=== PATIENT | male | born 1975 | race Two or more races ===

== ENCOUNTER 2023-03-27 18:23 | Inpatient (IN) | payer MEDICAID, OTHER ==
[~2023-03-27] VITALS: Ht 190.5 cm; Wt 113.0 kg
[2023-03-27 19:13] LABS: Eosinophils # (auto) 0.2 10 ^3/uL (0-0.8); Eosinophils % (auto) 3.3 % (0.0-7.0); Mean Corpuscular Hemoglobin 26.9 pg (28.0-32.0); Monocytes # (auto) 0.6 10 ^3/uL (0-1.3); Monocytes % (auto) 9.8 % (0.0-12.0); Neutrophils # (auto) 3.2 10 ^3/uL (1.6-8.6); Nucleated Red Blood Cells % 0.2 %
[2023-03-27 19:16] LABS: Basophils # (auto) 0 10 ^3/uL (0-0.2); Basophils % (auto) 0.8 % (0.0-2.0); Hematocrit 45.1 % (41.0-53.0); Hemoglobin 14.7 g/dL (13.5-17.5); Lymphocytes # (auto) 2.1 10 ^3/uL (0.4-5.4); Lymphocytes % (auto) 34.4 % (10.0-50.0); Mean Corpuscular Hgb Conc. 32.7 g/dL (32.0-36.0); Mean Corpuscular Volume 82.4 fL (80.0-100.0); Neutrophils % (auto) 51.7 % (37.0-80.0); Red Blood Cells 5.48 10^6/uL (4.5-5.90); Red Cell Distribution Width 19.5 % (11.8-14.3); White Blood Cell 6.2 10^3/uL (4.4-10.8)
[2023-03-27 19:33] LABS: INR 1.08 (0.9-1.15); Partial Thromboplastin Time 28.5 sec (24.6-33.4)
[2023-03-27 19:34] LABS: Albumin 3.5 g/dL (3.4-5.0); Calcium 8.3 mg/dL (8.5-10.1); Magnesium 2.3 mg/dL (1.6-2.6); Potassium 3.9 mmol/L (3.5-5.1)
[2023-03-27 19:37] LABS: BUN/Creatinine Ratio 19.6 (10.0-20.0); Bilirubin, Total 0.3 mg/dL (0.2-1.0); Total Protein 6.4 g/dL (6.4-8.2)
[2023-03-28] MEDS ORDERED: NITROGLYCERIN 0.4 MG SL TAB SL PRN (01:30)
[2023-03-28] MEDS ORDERED: ACETAMINOPHEN 325 MG TAB PO PRN (01:30)
[2023-03-28] MEDS ORDERED: ONDANSETRON HCL 4 MG/2 ML VIAL IV PRN (01:30)
[2023-03-28] MEDS ORDERED: DEXTROSE (50%) 50ML SYRG IV PRN (06:30)
[2023-03-28] MEDS: ACCU-CHEK COMFORT CURVE STRIP VI SCH ×4 (06:59→22:30)
[2023-03-28] MEDS: InsuLIN REG 1unit/0.01ml Soln (100units/ml) SC SCH ×4 (07:00→22:30)
[2023-03-28] MEDS: PANTOPRAZOLE 40 MG TAB PO SCH (08:49)
[2023-03-28] MEDS: METOPROLOL SUCCINATE XL 50 MG TAB PO SCH (08:49)
[2023-03-28] MEDS: FUROSEMIDE 40 MG TAB PO SCH (08:49)
[2023-03-28] MEDS: LISINOPRIL 20 MG TAB PO SCH (08:50)
[2023-03-28 13:16] LABS: Alcohol, Urine < 3.0 mg/dL (0-10); Amphetamine Screen, Urine NEGATIVE (NEGATIVE); Barbiturate Scree,Urine NEGATIVE (NEGATIVE); Benzodiazephine Screen, Urine NEGATIVE (NEGATIVE); Cannabinoid Screen, Urine NEGATIVE (NEGATIVE); Cocaine Screen, Urine NEGATIVE (NEGATIVE); Opiate Scree,Urine NEGATIVE (NEGATIVE); Phencyclidine Screen, Urine NEGATIVE (NEGATIVE)
[2023-03-28 13:38] LABS: Urine Bacteria NONE SEEN /hpf (None Seen); Urine Blood Negative /uL (Negative); Urine Specific Gravity 1.006 (1.001-1.035); Urine WBC <1 /hpf (0 - 3)
[2023-03-28] MEDS: MORPHINE SULFATE INJ 2 MG/ml SYRG IV PRN ×2 (21:02→22:45)
[2023-03-28] MEDS: ATORVASTATIN 20 MG TAB PO SCH (22:27)
[2023-03-28 22:59] VITALS: BP 121/79
[2023-03-29 05:00] VITALS: BP 125/72
[2023-03-29] MEDS ORDERED: SULF500T57 PO (05:38)
[2023-03-29] MEDS ORDERED: ASPI-543 PO (05:38)
[2023-03-29] MEDS ORDERED: ATOR40TA52 PO (05:38)
[2023-03-29] MEDS ORDERED: METO25TA5 PO (05:38)
[2023-03-29] MEDS ORDERED: METF-370 PO (05:38)
[2023-03-29] MEDS ORDERED: LISI20TA56 PO (05:40)
[2023-03-29] MEDS ORDERED: FURO40TA4 PO (05:40)
[2023-03-29] MEDS: ACCU-CHEK COMFORT CURVE STRIP VI SCH ×4 (06:14→22:34)
[2023-03-29] MEDS: InsuLIN REG 1unit/0.01ml Soln (100units/ml) SC SCH ×4 (06:17→22:45)
[2023-03-29 07:18] LABS: BUN/Creatinine Ratio 23.3 (10.0-20.0); Basophils # (auto) 0.1 10 ^3/uL (0-0.2); Basophils % (auto) 0.7 % (0.0-2.0); Calcium 8.4 mg/dL (8.5-10.1); Eosinophils # (auto) 0.3 10 ^3/uL (0-0.8); Eosinophils % (auto) 4.2 % (0.0-7.0); Hematocrit 46.8 % (41.0-53.0); Hemoglobin 15.5 g/dL (13.5-17.5); Lymphocytes # (auto) 2.8 10 ^3/uL (0.4-5.4); Lymphocytes % (auto) 38.5 % (10.0-50.0); Mean Corpuscular Hemoglobin 27.2 pg (28.0-32.0); Mean Corpuscular Volume 82.2 fL (80.0-100.0); Monocytes # (auto) 0.7 10 ^3/uL (0-1.3); Monocytes % (auto) 9.9 % (0.0-12.0); Neutrophils # (auto) 3.3 10 ^3/uL (1.6-8.6); Neutrophils % (auto) 46.7 % (37.0-80.0); Nucleated Red Blood Cells % 0.2 %; Potassium 3.9 mmol/L (3.5-5.1); Red Blood Cells 5.69 10^6/uL (4.5-5.90); White Blood Cell 7.2 10^3/uL (4.4-10.8)
[2023-03-29] MEDS: PANTOPRAZOLE 40 MG TAB PO SCH (09:54)
[2023-03-29] MEDS: LISINOPRIL 20 MG TAB PO SCH (09:54)
[2023-03-29] MEDS: METOPROLOL SUCCINATE XL 50 MG TAB PO SCH (09:55)
[2023-03-29] MEDS: FUROSEMIDE 40 MG TAB PO SCH (09:55)
[2023-03-29 16:45] VITALS: BP 125/74
[2023-03-29 22:00] VITALS: BP 133/79
[2023-03-29] MEDS: ATORVASTATIN 20 MG TAB PO SCH (22:34)
[2023-03-29] MEDS: MUPIROCIN 2% OINT 15gm or 22gm FOR MRSA NARES EACHNOSTRI SCH (22:34)
[2023-03-30 05:00] VITALS: BP 118/84
[2023-03-30 05:44] LABS: Basophils # (auto) 0.1 10 ^3/uL (0-0.2); Basophils % (auto) 0.9 % (0.0-2.0); Eosinophils # (auto) 0.3 10 ^3/uL (0-0.8); Eosinophils % (auto) 3.5 % (0.0-7.0); Hematocrit 49.1 % (41.0-53.0); Hemoglobin 16.2 g/dL (13.5-17.5); Lymphocytes # (auto) 2.8 10 ^3/uL (0.4-5.4); Lymphocytes % (auto) 33.7 % (10.0-50.0); Mean Corpuscular Hemoglobin 27.2 pg (28.0-32.0); Mean Corpuscular Volume 82.6 fL (80.0-100.0); Monocytes # (auto) 0.8 10 ^3/uL (0-1.3); Monocytes % (auto) 9.9 % (0.0-12.0); Neutrophils # (auto) 4.3 10 ^3/uL (1.6-8.6); Nucleated Red Blood Cells % 0.2 %; Red Blood Cells 5.94 10^6/uL (4.5-5.90); White Blood Cell 8.2 10^3/uL (4.4-10.8)
[2023-03-30 05:52] LABS: BUN/Creatinine Ratio 21.3 (10.0-20.0); Calcium 8.7 mg/dL (8.5-10.1); Potassium 3.9 mmol/L (3.5-5.1)
[2023-03-30] MEDS: ACCU-CHEK COMFORT CURVE STRIP VI SCH ×4 (06:34→21:55)
[2023-03-30] MEDS: InsuLIN REG 1unit/0.01ml Soln (100units/ml) SC SCH ×4 (06:46→21:57)
[2023-03-30 08:54] VITALS: BP 149/104
[2023-03-30] MEDS: LISINOPRIL 20 MG TAB PO SCH (10:31)
[2023-03-30] MEDS: METOPROLOL SUCCINATE XL 50 MG TAB PO SCH (10:32)
[2023-03-30] MEDS: PANTOPRAZOLE 40 MG TAB PO SCH (10:33)
[2023-03-30] MEDS: FUROSEMIDE 40 MG TAB PO SCH (10:33)
[2023-03-30] MEDS: MUPIROCIN 2% OINT 15gm or 22gm FOR MRSA NARES EACHNOSTRI SCH ×2 (10:34→21:44)
[2023-03-30 12:15] VITALS: BP 115/75
[2023-03-30 17:23] VITALS: BP 129/80
[2023-03-30 20:00] VITALS: BP 110/66
[2023-03-30] MEDS: ATORVASTATIN 20 MG TAB PO SCH (21:46)
[2023-03-30 22:00] VITALS: BP 110/66
[2023-03-31 05:00] VITALS: BP 143/85
[2023-03-31] MEDS: InsuLIN REG 1unit/0.01ml Soln (100units/ml) SC SCH (06:09)
[2023-03-31] MEDS: ACCU-CHEK COMFORT CURVE STRIP VI SCH (06:09)
[2023-03-31 09:00] VITALS: BP 138/87
[2023-03-31] MEDS: FUROSEMIDE 40 MG TAB PO SCH (09:09)
[2023-03-31] MEDS: PANTOPRAZOLE 40 MG TAB PO SCH (09:09)
[2023-03-31] MEDS: METOPROLOL SUCCINATE XL 50 MG TAB PO SCH (09:10)
[2023-03-31] MEDS: LISINOPRIL 20 MG TAB PO SCH (09:10)
[2023-03-31] MEDS: MUPIROCIN 2% OINT 15gm or 22gm FOR MRSA NARES EACHNOSTRI SCH (09:36)
[2023-03-31 11:03] VITALS: BP 138/87
== END 2023-03-31 13:45 | disposition short-term general hospital (02) | DRG 194 ==
LOC: EDBD → ER 18:29 → TELE 03-28 01:25 → TELE-EAST 03-28 21:43
PROVIDERS: ADMIT Nurse Practitioner; ATTEND Internal Medicine Pulmonary Disease
DX: I11.0 Hypertensive heart disease with heart failure (principal); I42.0 Dilated cardiomyopathy; I50.23 Acute on chronic systolic (congestive) heart failure; F15.10 Other stimulant abuse, uncomplicated; E11.9 Type 2 diabetes mellitus without complications; F19.90 Other psychoactive substance use, unspecified, uncomplicated; Z95.810 Presence of automatic (implantable) cardiac defibrillator
CPT/HCPCS: 36415; 71045; 80048; 80053; 80307; 81001; 82962; 83605; 83735; 83880; 84484; 85025; 85379; 85610; 85730; 87040; 87081; 93005; 93306; G0378; J1815

== ENCOUNTER 2023-04-10 11:09 | Emergency (ER) | payer MEDICAID ==
[~2023-04-10] VITALS: Ht 190.5 cm; Wt 109.0 kg
[~2023-04-10 11:09] MED LIST: ASPI-543 PO; ATOR40TA52 PO; FURO40TA4 PO; LISI20TA56 PO; METF-370 PO; METO25TA5 PO
[2023-04-10] MEDS ORDERED: MORPHINE SULFATE 4 MG/ML SYR/VIAL IV ONE (11:30)
[2023-04-10] MEDS ORDERED: ONDANSETRON HCL 4 MG/2 ML VIAL IV ONE (11:30)
[2023-04-10 12:03] LABS: Basophils # (auto) 0.1 10 ^3/uL (0-0.2); Eosinophils # (auto) 0.2 10 ^3/uL (0-0.8); Eosinophils % (auto) 2.6 % (0.0-7.0); Hemoglobin 16.7 g/dL (13.5-17.5); Lymphocytes # (auto) 2.2 10 ^3/uL (0.4-5.4); Mean Corpuscular Hemoglobin 27.2 pg (28.0-32.0); Red Blood Cells 6.14 10^6/uL (4.5-5.90)
[2023-04-10 12:06] LABS: Hematocrit 50.4 % (41.0-53.0); Lymphocytes % (auto) 26.6 % (10.0-50.0); Mean Corpuscular Hgb Conc. 33.1 g/dL (32.0-36.0); Mean Corpuscular Volume 82.1 fL (80.0-100.0); Monocytes # (auto) 0.7 10 ^3/uL (0-1.3); Monocytes % (auto) 8.9 % (0.0-12.0); Neutrophils % (auto) 60.9 % (37.0-80.0); Nucleated Red Blood Cells % 0.3 %; White Blood Cell 8.3 10^3/uL (4.4-10.8)
[2023-04-10 12:10] LABS: Albumin 3.4 g/dL (3.4-5.0); Calcium 9.3 mg/dL (8.5-10.1); Magnesium 2.1 mg/dL (1.6-2.6); Potassium 4.9 mmol/L (3.5-5.1)
[2023-04-10 12:15] LABS: Bilirubin, Total 0.6 mg/dL (0.2-1.0)
[2023-04-10 13:05] LABS: INR 1.03 (0.9-1.15); Partial Thromboplastin Time 26.3 SEC (24.5-34.5)
[2023-04-10 15:18] LABS: Urine Bacteria NONE SEEN /hpf (None Seen); Urine Blood Negative /uL (Negative); Urine WBC 1 /hpf (0 - 3)
[2023-04-10 16:00] VITALS: BP 144/80
== END 2023-04-10 17:30 | disposition home or self-care (01) ==
LOC: ER 11:09 → EDUNIT# 11:09 → EDBD 11:09 → ER 17:30
DX: R07.89 Other chest pain (principal); E11.9 Type 2 diabetes mellitus without complications; I25.2 Old myocardial infarction; I11.0 Hypertensive heart disease with heart failure; I50.9 Heart failure, unspecified; E78.5 Hyperlipidemia, unspecified; I25.10 Atherosclerotic heart disease of native coronary artery without angina pectoris; Z95.0 Presence of cardiac pacemaker; Z79.82 Long term (current) use of aspirin; Z79.84 Long term (current) use of oral hypoglycemic drugs; Z79.899 Other long term (current) drug therapy
CPT/HCPCS: 36415; 71045; 80053; 81001; 83735; 83880; 84484; 85025; 85610; 85730; 93005; 96374; 96375; 99285; J2270; J2405